=== PATIENT | male | born 1945 | race Two or more races ===

== ENCOUNTER 2019-10-13 16:28 | Inpatient (IN) | payer MEDICARE, OTHER ==
[~2019-10-13] VITALS: Ht 180.3 cm; Wt 88.9 kg
--- NOTE | 2019-10-13 17:30 | NUR ---
Patient BIB pvt ambulance from [facility] for adm to MHU. Patient was placed on a 5150 for DTS. A/Ox4. Speech is clear, but patient repeatedly breaths rapidly because he states it has something to do with his stomach. No cardiovascular distress noted, all pulses palpable. Denies any n/v/d. Patient in bed at lowest position, sr upx2, call light within reach. All objects within reach moved away and out of room.
[2019-10-13 17:48] LABS: BASOPHILS # (AUTO) 0.1 K/uL (0.0-8.0); BASOPHILS % (AUTO) 0.8 % (0.0-2.0); EOSINOPHILS # (AUTO) 0.1 K/uL (0.0-0.7); EOSINOPHILS % (AUTO) 0.9 % (0.0-7.0); HEMATOCRIT 42.1 % (36.7-47.1); HEMOGLOBIN 14.1 g/dL (12.5-16.3); LYMPHOCYTES # (AUTO) 2.1 K/uL (20.0-40.0); LYMPHOCYTES % (AUTO) 23.6 % (20.5-51.5); MEAN CORPUSCULAR HEMOGLOBIN 28.4 uug (23.8-33.4); MEAN CORPUSCULAR HGB CONC 34 g/dL (32.5-36.3); MEAN CORPUSCULAR VOLUME 84.8 fL (73.0-96.2); MONOCYTES # (AUTO) 0.6 K/uL (2.0-10.0); MONOCYTES % (AUTO) 7.2 % (0.0-11.0); NEUTROPHILS % (AUTO) 67.5 % (38.5-71.5); PLATELET COUNT (AUTO) 293 K/uL (152-348); RED BLOOD CELL COUNT(AUTO) 4.96 MIL/uL (4.06-5.63); WHITE BLOOD COUNT (AUTO) 8.9 K/uL (3.6-10.2)
[2019-10-13] MEDS ORDERED: QUET200T PO (17:50)
[2019-10-13] MEDS ORDERED: QUET25TA PO (17:50)
[2019-10-13] MEDS ORDERED: METO-356 PO (17:50)
[2019-10-13] MEDS ORDERED: ZOLP10TA2 PO (17:50)
[2019-10-13] MEDS ORDERED: CLON0.5T4 PO (17:50)
[2019-10-13] MEDS ORDERED: DULO60CA45 PO (17:50)
[2019-10-13] MEDS ORDERED: SAW160CA3 PO (17:50)
[2019-10-13] MEDS ORDERED: LORAZEPAM 2 MG/1 ML VIAL ONE (18:00)
[2019-10-13] MEDS ORDERED: LORAZEPAM 2 MG/1 ML VIAL IM ONE (18:00)
[2019-10-13 18:03] LABS: CARBON DIOXIDE 28 mmol/L (21-32); CHLORIDE 104 mmol/L (98-107); GLUCOSE 110 mg/dL (74-106); POTASSIUM 4.5 mmol/L (3.5-5.1); UREA NITROGEN, BLOOD 18 mg/dL (7-18)
[2019-10-13 18:07] LABS: *BILIRUBIN,URIN NEGATIVE (NEGATIVE); *BLOOD, URINE NEGATIVE (NEGATIVE); *CLARITY,URINE CLEAR (CLEAR); *COLOR,URINE YELLOW (YELLOW); *KETONES,URINE NEGATIVE (NEGATIVE); *UROBILINOGEN,URINE 0.2 E.U./dl (NORMAL); LEUKOCYTE ESTERASE ,URINE NEGATIVE (NEGATIVE); NITRITE, URINE NEGATIVE (NEGATIVE); PH,URINE 6.5 (5.0-8.0); UGLUCOSE NEGATIVE (NEGATIVE)
[2019-10-13 18:08] LABS: ALANINE AMINOTRANSFERASE 28 U/L (16-63); ALKALINE PHOSPHATASE 81 U/L (50-136); ASPARTATE AMINOTRANSFERASE 21 U/L (15-37); BILIRUBIN,DIRECT 0.1 mg/dL (0.0-0.2); BILIRUBIN,TOTAL 0.4 mg/dL (0.2-1.0); TOTAL PROTEIN, SERUM 7.9 g/dL (6.4-8.2)
[2019-10-13 18:21] LABS: ACETAMINOPHEN < 0.0 ug/mL (10-30)
[2019-10-13 18:29] LABS: *AMPHETAMINE, URINE NEGATIVE (NEGATIVE); *BARBITURATE, URINE NEGATIVE (NEGATIVE); *CANNABINOID, URINE NEGATIVE (NEGATIVE); *COCCAINE, URINE NEGATIVE (NEGATIVE); *OPIATE, URINE NEGATIVE (NEGATIVE); *PHENCYCLIDINE SCREEN,URINE NEGATIVE (NEGATIVE)
--- NOTE | 2019-10-13 18:42 | NUR ---
Report given to ANDREW Loving
--- NOTE | 2019-10-13 19:03 | NUR ---
Patient transported to MHU in stable condition.
[2019-10-13] MEDS ORDERED: BLOOD SUGAR DIAGNOSTIC 1 EACH STRIP VI ONE (19:15)
[2019-10-13] MEDS ORDERED: MAG HYDROX/AL HYDROX/SIMETH 30 ML LIQUID UDC PO PRN (19:15)
[2019-10-13 19:27] LABS: THYROID STIMULATING HORMONE 1.615 mIU/mL (0.358-3.740)
[2019-10-13] MEDS: TEMAZEPAM 7.5 MG CAPSULE PO PRN (21:09)
--- NOTE | 2019-10-13 21:22 | NUR ---
Admission note 73 year old male, Luxembourgish/Emirati speaking admitted from the ER. On a 5150 hold for danger to self. Per hold, patient has been having suicidal ideation with a plan. Patient tried to grabbed a knife, but took the knife and sharp objects away. Also says patient believe he has stomach cancer. Per records from [facility] tests were negative for any findings. Upon face to face assessment, patient is A/Ox3, very pleasant and cooperative. Patient was unaware why he was admitted to MHU, explained what was on the hold and patient confirmed that he had a plan to harm himself, he stated that he was depressed, he had issues with his stomach and he wanted to end his life. At this time, I asked patient if he had any plan to or wanting to harm himself now and he stated no, it was only when he was at [facility]. Upon admission, patients vitals are WNL. No complaints of pain or SOB, patient stated having trouble sleeping, offered PRN sleeping medication and patient accepted. Patient was showered and helped to bed. Ambulates with FWW. Attempted to call son Hao, but no answer, left message. Pt educated regarding unit rules and expectations. Patient rights explained, Advisement and patient rights handbook given, Pt oriented to the unit, the phones, his room, and the bathroom. Q 15 minute safety checks initiated.
[2019-10-14 07:30] VITALS: BP 132/81
[2019-10-14] MEDS: LORAZEPAM 0.5 MG TABLET PO PRN (10:43)
--- NOTE | 2019-10-14 11:35 | NUR ---
SAMARA Family Contact: SW called patient's , Dulce Maria ([phone]) and son Hao ([phone]) but unable to reach either. Left voicemail for return call.
--- NOTE | 2019-10-14 11:35 | NUR ---
SAMARA Initial Discharge Note: Patient resides at home [address] [place] [address] with his , Dulce Maria ([phone]) and son Hao ([phone]). Patient will return home upon discharge. SAMARA will continue to work with patient, family, and MD to ensure a safe and proper discharge plan.
--- NOTE | 2019-10-14 11:40 | NUR ---
Social Work Firearms Report ([employer]): Mud Engineer completed and submitted a [employer] firearms report for 5150 danger to self certification. A copy of report has been placed in patient chart.
[2019-10-14] MEDS: DULOXETINE 30 MG CAPSULE.DR PO SCH (12:45)
[2019-10-14] MEDS: QUETIAPINE FUMARATE 25 MG TABLET PO SCH (12:45)
[2019-10-14 14:03] LABS: BILIRUBIN,TOTAL 0.4 mg/dL (0.2-1.0); CREATININE 1.2 mg/dL (0.6-1.3); POTASSIUM 4.7 mmol/L (3.5-5.1); TOTAL PROTEIN, SERUM 7.9 g/dL (6.4-8.2)
--- NOTE | 2019-10-14 14:36 | NUR ---
received patient is A/O x3 parania and delusional ,c/o of abdominal pain denies any psy, problem, compliant with all po medication,refused for group activity ,will continue close monitoring.
[2019-10-14 16:00] VITALS: BP 134/71
[2019-10-14 20:30] VITALS: BP 139/75
[2019-10-14] MEDS ORDERED: QUETIAPINE FUMARATE 100 MG TABLET PO SCH (21:00)
[2019-10-14] MEDS: TEMAZEPAM 7.5 MG CAPSULE PO PRN (21:36)
--- NOTE | 2019-10-14 22:19 | NUR ---
Patient received in bed awake,calm and cooperative. A/Ox3. Denies any SI at this time. Patient is easily agiated and irritable. Patient complaint with medication. No aggressive or combative behavior noted will continue to montior. Safe environment provided, frequent rounding, and clutter free environment. Bed in lowest position, bed locked, and bed alarm on while in bed.
[2019-10-15 07:53] VITALS: BP 139/76
[2019-10-15] MEDS ORDERED: SAW PALMETTO 160 MG PO SCH (09:00)
[2019-10-15] MEDS: METOPROLOL SUCCINATE XL 25 MG TAB.SR.24H PO SCH (09:04)
[2019-10-15] MEDS: QUETIAPINE FUMARATE 25 MG TABLET PO SCH ×2 (09:04→13:03)
[2019-10-15] MEDS: ACETAMINOPHEN 325 MG TABLET PO PRN (09:12)
[2019-10-15] MEDS: LORAZEPAM 0.5 MG TABLET PO PRN (09:12)
--- NOTE | 2019-10-15 09:27 | NUR ---
SAMARA Family Contact: SW spoke patient's son Hao ([phone]) and discussed treatment plan and collected collateral information. Hao stated that the patient has a long history of somatic complaints and psychiatric hospitalizations and has been in nursing homes for continued treatment. Hao stated that patient become delusional about having cancer and gets agitated and became severe resulting in patient attempting suicide with a chain saw to his head. Hao stated that the patient's baseline is happy and calm. Hao stated that they would want half-way placement for the patient as they believe it is safer for the patient and the family.
[2019-10-15] MEDS: DULOXETINE 30 MG CAPSULE.DR PO SCH ×2 (13:03→17:06)
[2019-10-15 15:34] VITALS: BP 111/69
[2019-10-15] MEDS: risperiDONE 0.25 MG TABLET PO SCH (17:06)
--- NOTE | 2019-10-15 17:28 | NUR ---
Gps/Claim Review Medical Director- Noted had been in and out of his group activity. Stayed i in his room during meals. Claimed felt better with his abdominal discomfort, it comes and goes. Ambulates around with front wheel walker. Making his needs known, medications compliant.
--- NOTE | 2019-10-15 18:20 | NUR ---
Gps/Urban Design Consultant- Patient's son Hao, called from [place] , wants to check on his father as well as progress, in his behavior. Son verbalized concerns , claimed he noted that if he is in the Hospital it seems like he is doing well, but when he goes back home to his Mom is what he is worried about, , behavior changes . Will continue to monitor behavior, encouraged continued verbalizations of his feelings.
[2019-10-15 20:00] VITALS: BP 152/69
--- NOTE | 2019-10-15 20:00 | NUR ---
Patient received into care, laying in bed, resting comfortably. Patient is alert/oriented 2-3 and has no complaints of pain or discomfort at this time. All safety and fall precaution measures are in place. Will continue to monitor and assess.
[2019-10-15] MEDS: TEMAZEPAM 7.5 MG CAPSULE PO PRN (20:59)
[2019-10-15] MEDS ORDERED: risperiDONE 0.25 MG TABLET PO SCH (21:00)
--- NOTE | 2019-10-16 06:17 | NUR ---
Patient slept well throughout night with no complaints of pain or discomfort verbalized or noted/observed by this nurse. Patient was compliant with all aspects of care and all nursing needs were addressed promptly. All safety and fall precaution measures remain in place.
[2019-10-16 07:30] VITALS: BP 146/73
[2019-10-16] MEDS: risperiDONE 0.25 MG TABLET PO SCH ×4 (08:48→20:24)
[2019-10-16] MEDS: METOPROLOL SUCCINATE XL 25 MG TAB.SR.24H PO SCH (08:49)
[2019-10-16] MEDS: DULOXETINE 30 MG CAPSULE.DR PO SCH ×2 (12:38→17:21)
--- NOTE | 2019-10-16 15:01 | NUR ---
SAMARA Individual Therapy Note: SW met with patient today for brief individual therapy to address patient's suicidal ideation. Patient states he is still feeling "depressed" due to his abdominal pain. Patient shares that he is "suffering" and "can't do it anymore". nozzle and sleeve worker increased awareness surrounding positive reinforcement and utilized empathic understanding of patients feelings. nozzle and sleeve worker will continue to monitor patient's suicidal ideation and encouraged pt to join group and interact with peers.
[2019-10-16 15:27] VITALS: BP 115/85
--- NOTE | 2019-10-16 20:00 | NUR ---
RECEIVED PATIENT IN HIS ROOM IN BED. HE IS NOTED A/O X 2. HE IS CALM AND PLEASANT UPON APPROACHED. HIS DENIED SI/HI/VH/AH. HE IS ABLE TO CFS. PATIENT CONTINUE NOTE HYPERVERBAL, WITH PSYCHOSOMATIC DELUSIONAL THINKING, HE STATED, "THERE IS NOTHING WRONG WITH ME IN MY HEAD, I HAVE STOMACH CANCER AND I NEED TO TAKE CARE OF IT". PT HAS POOR INSIGHT INTO HIS ADMISSION TO MHU. PT IS ABLE TO VERBALIZED FEELINGS. HE IS REASSURED FOR HIS SAFETY. SAFETY AND FALL PRECAUTION IN PLACE. V/S STABLE. WILL CONTINUE TO MONITOR.
[2019-10-16 20:11] VITALS: BP 140/70
[2019-10-16] MEDS: TEMAZEPAM 7.5 MG CAPSULE PO PRN (22:20)
[2019-10-17 07:30] VITALS: BP 152/74
[2019-10-17] MEDS: risperiDONE 0.25 MG TABLET PO SCH ×4 (08:49→20:05)
[2019-10-17] MEDS: METOPROLOL SUCCINATE XL 25 MG TAB.SR.24H PO SCH (08:51)
[2019-10-17] MEDS: LORAZEPAM 0.5 MG TABLET PO PRN (09:14)
[2019-10-17] MEDS: DULOXETINE 30 MG CAPSULE.DR PO SCH ×2 (12:31→16:46)
[2019-10-17 16:00] VITALS: BP 111/68
[2019-10-17 20:00] VITALS: BP 134/55
--- NOTE | 2019-10-17 20:00 | NUR ---
Received patient in his room in bed. he is noted awake A/O x 2. he continue preoccupied with psychosomatic issues. He stated, "my kidneys are bad. and because they are connected to my brain i am sick. Mood is low, affect is blunted. continue with psychosomatic complains.Patient denies SI/HI/VH/AH. He is reassured for his safety. safety and fall precaution in place. V/S stable. will continue to monitor.
[2019-10-17] MEDS: TEMAZEPAM 7.5 MG CAPSULE PO PRN (21:40)
[2019-10-18 07:30] VITALS: BP 147/73
[2019-10-18] MEDS: risperiDONE 0.25 MG TABLET PO SCH ×4 (09:02→20:19)
[2019-10-18] MEDS: METOPROLOL SUCCINATE XL 25 MG TAB.SR.24H PO SCH (09:02)
[2019-10-18] MEDS: DULOXETINE 30 MG CAPSULE.DR PO SCH ×2 (12:18→17:38)
[2019-10-18] MEDS: LORAZEPAM 0.5 MG TABLET PO PRN (12:23)
[2019-10-18 15:43] VITALS: BP 106/73
[2019-10-18 20:20] VITALS: BP 147/74
[2019-10-19] MEDS: MAGNESIUM HYDROXIDE 30 ML LIQUID UDC PO PRN (05:46)
[2019-10-19 07:30] VITALS: BP 137/74
[2019-10-19] MEDS: risperiDONE 0.25 MG TABLET PO SCH ×3 (08:13→16:51)
[2019-10-19] MEDS: METOPROLOL SUCCINATE XL 25 MG TAB.SR.24H PO SCH (08:14)
--- NOTE | 2019-10-19 09:36 | NUR ---
SAMARA Coordination of Care: SAMARA faxed pt's referral packet for review and possible placement to [facility] (ph: [phone] and fax: [phone]) attention to Jaimie. Addendum: 10/19/19 at 1512 by AMI WILHELM Received a call back from Erik admissions representative at the facility who stated patient is accepted for placement.
[2019-10-19] MEDS: LORAZEPAM 0.5 MG TABLET PO PRN ×2 (10:50→16:51)
[2019-10-19] MEDS: DULOXETINE 30 MG CAPSULE.DR PO SCH ×2 (12:16→16:51)
[2019-10-19 15:27] VITALS: BP 126/54
[2019-10-19 20:23] VITALS: BP 13/66
[2019-10-19] MEDS ORDERED: risperiDONE 0.25 MG TABLET PO SCH (21:00)
--- NOTE | 2019-10-19 21:34 | NUR ---
GPS: PT A/O X2, DENIED SI, OR INTENT. PT DELUSIONAL AND C/O SOMETHING WRONG WITH HIS STOMACH. OFFER STOOL SOFTENER AND PT SAID NO, THAT IS NOT WHAT IS WRONG WITH ME. THERE IS SOMETHING WRONG ON MY STOMACH NOT MY HEAD! PT WAS REORIENTED TO REALITY AND ENSURE SAFETY. PT AT THIS TIME REQUESTING SLEEPING AID. PRN GIVEN ORDER AND CONTINUE MONITOR.
[2019-10-19] MEDS: TEMAZEPAM 7.5 MG CAPSULE PO PRN (22:18)
[2019-10-20 07:46] VITALS: BP 132/82
[2019-10-20] MEDS: risperiDONE 0.25 MG TABLET PO SCH ×3 (08:04→17:03)
[2019-10-20] MEDS: METOPROLOL SUCCINATE XL 25 MG TAB.SR.24H PO SCH (08:05)
[2019-10-20] MEDS ORDERED: DULOXETINE 30 MG CAPSULE.DR PO SCH (13:00)
--- NOTE | 2019-10-20 13:00 | NUR ---
SAMARA Individual Therapy Note: SW met with patient today for brief individual therapy to address patient's suicidal ideation. Patient denies suicidal ideation and has no plan or intent. SW discussed placement options with the patient. Patient is agreeable with going to a care home upon discharge. Pt states "I have no one to take care of me at home". This policy writer typist acknowledged patient's feelings and provided guidance. SW explained to patient that s long-term facility, [facility] is accepting and he will go there upon discharge.
[2019-10-20 15:09] VITALS: BP 128/62
[2019-10-20] MEDS: LORAZEPAM 0.5 MG TABLET PO PRN (17:30)
--- NOTE | 2019-10-20 18:45 | NUR ---
patient is A/O x2 pacing in the hallway with episode of anxiety ,prn Ativan given as ordered,ambulating with FWW .encouraged to attendance group activity.
[2019-10-20 20:12] VITALS: BP 145/72
[2019-10-20] MEDS: risperiDONE 1 MG TABLET PO SCH (20:30)
[2019-10-20] MEDS: MAGNESIUM HYDROXIDE 30 ML LIQUID UDC PO PRN (20:30)
[2019-10-20] MEDS ORDERED: risperiDONE 0.25 MG TABLET PO SCH (21:00)
[2019-10-20] MEDS: TEMAZEPAM 7.5 MG CAPSULE PO PRN (23:02)
--- NOTE | 2019-10-20 23:59 | NUR ---
GPS:RECEIVED PT IN ROOM, A/O X3, DENIED SI BUT NOTED DEPRESSED. PT STILL NOTED WITH DELUSIONAL AND C/O SOMETHING WRONG WITH HIS STOMACH AND C/O HE HAD A HARD STOOL. RE-OFFER STOOL SOFTENER TODAY AND PT SAID YES. PRN MOM GIVE ORDERED AND WAITING EFFECT, ENCOURAGED PLENTY OF WATER TOLERATED. PT ALSO C/O UNABLE TO SLEEP WELL AND PRN SLEEPING WAS ADMINISTERED WITH A WASTED CAPSULE DUE TO PT WAS MOVING THINGS AND DROPPED IT. PT WAS REORIENTED TO REALITY AND ENSURE SAFETY. PT AT THIS TIME SLEEPING AND WILL CONTINUE MONITOR.
[2019-10-21 07:30] VITALS: BP 125/73
[2019-10-21] MEDS: risperiDONE 0.25 MG TABLET PO SCH (09:47)
[2019-10-21] MEDS: OMEGA-3 FATTY ACIDS/FISH OIL CAPSULE PO SCH (09:47)
[2019-10-21] MEDS: METOPROLOL SUCCINATE XL 25 MG TAB.SR.24H PO SCH (09:50)
[2019-10-21] MEDS ORDERED: risperiDONE 0.25 MG TABLET PO SCH (13:00)
[2019-10-21] MEDS ORDERED: DULOXETINE 30 MG CAPSULE.DR PO SCH (13:00)
[2019-10-21] MEDS: risperiDONE 0.5 MG TABLET PO SCH ×2 (13:33→17:07)
[2019-10-21] MEDS: LORAZEPAM 0.5 MG TABLET PO PRN (15:31)
[2019-10-21 16:00] VITALS: BP 143/72
--- NOTE | 2019-10-21 20:30 | NUR ---
Patient ambulating in hallway with FWW, steady gait. Requesting night time medication. Patient denies any SI/hallucination, but patient continues with paranoia that there is something wrong with his stomach and he has stomach cancer, he says "there is nothing wrong with me mentally, it is my stomach." Reoriented patient that at [facility], they did scans of his abdomen and nothing wrong was found, but he believes they're hiding it. Patient is cooperative with care.
[2019-10-21 20:40] VITALS: BP 157/85
[2019-10-21] MEDS: risperiDONE 1 MG TABLET PO SCH (20:53)
[2019-10-21] MEDS: TEMAZEPAM 7.5 MG CAPSULE PO PRN (23:21)
[2019-10-22 07:56] VITALS: BP 135/59
[2019-10-22] MEDS: OMEGA-3 FATTY ACIDS/FISH OIL CAPSULE PO SCH (08:42)
[2019-10-22] MEDS: risperiDONE 0.5 MG TABLET PO SCH ×3 (08:43→17:19)
[2019-10-22] MEDS: METOPROLOL SUCCINATE XL 25 MG TAB.SR.24H PO SCH (08:45)
[2019-10-22] MEDS: LORAZEPAM 0.5 MG TABLET PO PRN (11:46)
[2019-10-22 13:00] VITALS: BP 104/77
[2019-10-22] MEDS ORDERED: DULOXETINE 30 MG CAPSULE.DR PO SCH (13:00)
[2019-10-22] MEDS: BENZTROPINE MESYLATE 0.5 MG TABLET PO SCH ×2 (13:08→17:19)
[2019-10-22] MEDS: FLUOXETINE HCL 20 MG CAPSULE PO SCH (13:08)
--- NOTE | 2019-10-22 13:17 | NUR ---
SAMARA Individual Therapy Note: SW met with patient today for brief individual therapy to address patient's suicidal ideation. Patient states he is no longer feeling suicidal however patient remain with depressed mood. Patient stated "it is hard to deal with the pain in my stomach". Patient remains delusional about having "stomach cancer" or "lung cancer" or "kidney cancer". Pt is unable to engage in a meaningful conversation and is fixated on "health issues". Patient shared that he does not believe he has "mental issues". SW provided empathetic understanding and reality orientation, however pt remain fixated with his delusions. SW encouraged patient to participate in group therapy and engage with peers.
[2019-10-22] MEDS: risperiDONE 1 MG TABLET PO SCH (20:05)
[2019-10-22 21:15] VITALS: BP 153/93
[2019-10-22] MEDS: TEMAZEPAM 7.5 MG CAPSULE PO PRN (22:17)
[2019-10-23 07:30] VITALS: BP 110/53
[2019-10-23] MEDS: OMEGA-3 FATTY ACIDS/FISH OIL CAPSULE PO SCH (08:11)
[2019-10-23] MEDS: BENZTROPINE MESYLATE 0.5 MG TABLET PO SCH ×3 (08:13→16:25)
[2019-10-23] MEDS: FLUOXETINE HCL 20 MG CAPSULE PO SCH (08:13)
[2019-10-23] MEDS: risperiDONE 0.5 MG TABLET PO SCH ×3 (08:13→16:25)
[2019-10-23] MEDS: METOPROLOL SUCCINATE XL 25 MG TAB.SR.24H PO SCH (08:13)
[2019-10-23 15:07] VITALS: BP 119/69
[2019-10-23] MEDS: risperiDONE 1 MG TABLET PO SCH (20:07)
[2019-10-23 20:28] VITALS: BP 121/61
[2019-10-23] MEDS: TEMAZEPAM 7.5 MG CAPSULE PO PRN (22:59)
[2019-10-24 07:30] VITALS: BP 116/58
[2019-10-24] MEDS: risperiDONE 0.5 MG TABLET PO SCH ×3 (09:12→16:47)
[2019-10-24] MEDS: BENZTROPINE MESYLATE 0.5 MG TABLET PO SCH ×3 (09:12→16:47)
[2019-10-24] MEDS: OMEGA-3 FATTY ACIDS/FISH OIL CAPSULE PO SCH (09:12)
[2019-10-24] MEDS: FLUOXETINE HCL 20 MG CAPSULE PO SCH (09:12)
[2019-10-24] MEDS: METOPROLOL SUCCINATE XL 25 MG TAB.SR.24H PO SCH (09:13)
[2019-10-24 16:00] VITALS: BP 119/68
[2019-10-24 20:00] VITALS: BP 117/66
[2019-10-24] MEDS: risperiDONE 1 MG TABLET PO SCH (20:33)
[2019-10-24] MEDS: TEMAZEPAM 7.5 MG CAPSULE PO PRN (20:37)
--- NOTE | 2019-10-24 23:50 | NUR ---
RECEIVED PATIENT IN ACTIVITY ROOM. MOOD APPEARED DEPRESSED BUT UPON INTERACTION HE DENIED BEING SUICIDAL. 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 ALSO REQUESTED SLEEP AID AT 21:00 AND WAS GIVEN TEMAZEPAM 7.5MG WITH FAIRLY GOOD EFFECT.WILL CONTINUE TO MONITOR HIM.
[2019-10-25] MEDS: LORAZEPAM 0.5 MG TABLET PO PRN (03:49)
--- NOTE | 2019-10-25 06:23 | NUR ---
SLEPT FOR APPROX. 5:30 HOURS. KEPT GETTING UP TO REINFORCE HIS PSYCHOSOMATIC ILLNESS AND TO SAY EVERY MEDICATION WE GAVE DID NOT WORK. UP THIS MORNING AND HAS TAKEN A SHOWER.
[2019-10-25 07:30] VITALS: BP 148/74
[2019-10-25] MEDS: FLUOXETINE HCL 20 MG CAPSULE PO SCH (08:40)
[2019-10-25] MEDS: risperiDONE 0.5 MG TABLET PO SCH ×3 (08:40→16:53)
[2019-10-25] MEDS: METOPROLOL SUCCINATE XL 25 MG TAB.SR.24H PO SCH (08:41)
[2019-10-25] MEDS: OMEGA-3 FATTY ACIDS/FISH OIL CAPSULE PO SCH (08:41)
[2019-10-25] MEDS: BENZTROPINE MESYLATE 0.5 MG TABLET PO SCH ×3 (08:41→16:52)
[2019-10-25 15:18] VITALS: BP 134/80
[2019-10-25] MEDS: risperiDONE 1 MG TABLET PO SCH (20:37)
[2019-10-25 21:04] VITALS: BP 143/55
[2019-10-25] MEDS: TEMAZEPAM 7.5 MG CAPSULE PO PRN (22:04)
--- NOTE | 2019-10-26 01:21 | NUR ---
RECEIVED PATIENT IN HIS ROOM. MOOD APPEARED DEPRESSED. STILL SAYS HE HAS SEVERAL PSYCHOSOMATIC ILLNESSES. COMPLIANT WITH MEDS. SLEEP AID REQUESTED AT 22:00 AND HE SLEPT FAIRLY WELL.WILL CONTINUE TO MONITOR.
--- NOTE | 2019-10-26 06:42 | NUR ---
SLEPT FOR APPROX. 7:45HOURS.
[2019-10-26 08:00] VITALS: BP 100/41
[2019-10-26] MEDS: FLUOXETINE HCL 20 MG CAPSULE PO SCH (09:48)
[2019-10-26] MEDS: OMEGA-3 FATTY ACIDS/FISH OIL CAPSULE PO SCH (09:48)
[2019-10-26] MEDS: BENZTROPINE MESYLATE 0.5 MG TABLET PO SCH ×3 (09:48→17:53)
[2019-10-26] MEDS: risperiDONE 0.5 MG TABLET PO SCH ×3 (09:48→17:53)
[2019-10-26] MEDS: METOPROLOL SUCCINATE XL 25 MG TAB.SR.24H PO SCH (09:49)
[2019-10-26] MEDS: MAGNESIUM HYDROXIDE 30 ML LIQUID UDC PO PRN (09:50)
[2019-10-26] MEDS: CLONAZEPAM 0.5 MG TABLET PO SCH ×2 (13:07→17:53)
[2019-10-26 16:29] VITALS: BP 127/64
[2019-10-26] MEDS: risperiDONE 2 MG TABLET PO SCH (20:16)
[2019-10-26 20:40] VITALS: BP 132/69
[2019-10-26] MEDS ORDERED: risperiDONE 1 MG TABLET PO SCH (21:00)
[2019-10-26] MEDS: TEMAZEPAM 7.5 MG CAPSULE PO PRN (22:36)
--- NOTE | 2019-10-27 05:56 | NUR ---
GPS: PATIENT SLEPT FOR APPROX. 5:30 HOURS AFTER SLEEPING MEDS GIVEN. PATIENT FREQUENTLY TO SAY EVERY MEDICATION WE GAVE DID NOT WORK. SHOWERED THIS MORNING. COMPLIANT WITH MEDS AND CARE. CONTINUE PLAN OF CARE.
[2019-10-27 07:30] VITALS: BP 136/72
--- NOTE | 2019-10-27 08:00 | NUR ---
GPS: received patient AOx1, patient denies Si and HI, in good spirit, patient was redirectable, patient in nodistress at this time, compliant with medication
[2019-10-27] MEDS: risperiDONE 0.5 MG TABLET PO SCH ×3 (09:15→16:26)
[2019-10-27] MEDS: OMEGA-3 FATTY ACIDS/FISH OIL CAPSULE PO SCH (09:15)
[2019-10-27] MEDS: CLONAZEPAM 0.5 MG TABLET PO SCH ×2 (09:15→16:25)
[2019-10-27] MEDS: FLUOXETINE HCL 20 MG CAPSULE PO SCH (09:15)
[2019-10-27] MEDS: BENZTROPINE MESYLATE 0.5 MG TABLET PO SCH ×3 (09:15→16:25)
[2019-10-27] MEDS: METOPROLOL SUCCINATE XL 25 MG TAB.SR.24H PO SCH (09:16)
[2019-10-27 15:48] VITALS: BP 118/69
--- NOTE | 2019-10-27 18:16 | NUR ---
patient remain calm, seen interacting with other patient, no distress
--- NOTE | 2019-10-27 19:00 | NUR ---
PATIENT ALERT BUT WITH CONFUSION, NO COMPLAIN OF PAIN AT THIS TIME. PATIENT STAYED MOST IN ROOM, BUT WITH EPISODE OF AMBULATING WITHOUT HIS WALKER, AND TALKING ABOUT WANTING TO GO OUT THE DOOR, AND ABOUT HIS MOTHER, ASKED PATIENT TO SPEAK IN OMANI INSTEAD OF BULGARIAN, BUT NOT EFFECTIVE. DIRECT PATIENT TO HIS ROOM. CONT TO MONITOR.
[2019-10-27] MEDS: MEMANTINE HCL 5 MG TABLET PO SCH (20:14)
[2019-10-27] MEDS: risperiDONE 2 MG TABLET PO SCH (20:14)
[2019-10-27 20:21] VITALS: BP 143/86
[2019-10-27] MEDS: TEMAZEPAM 7.5 MG CAPSULE PO PRN (22:10)
--- NOTE | 2019-10-27 22:10 | NUR ---
PATIENT AMBULATING TO HALLWAYS, PATIENT UNABLE TO SLEEP. PATIENT WAS GIVEN SLEEPING MEDICATIONS TO HELP FALL ASLEEP, AND CONTINUE TO REDIRECT PATIENT TO HIS ROOM CONT TO MONITOR.
--- NOTE | 2019-10-28 05:57 | NUR ---
PATIENT SLEPT MOST OF THE NIGHT, NO COMPLAIN OF PAIN. PATIENT REMAINS CALM ALL NIGHT, CONT TO MONITOR.
[2019-10-28 07:30] VITALS: BP 114/60
[2019-10-28] MEDS: CLONAZEPAM 0.5 MG TABLET PO SCH (08:10)
[2019-10-28] MEDS: FLUOXETINE HCL 20 MG CAPSULE PO SCH (08:10)
[2019-10-28] MEDS: risperiDONE 0.5 MG TABLET PO SCH ×3 (08:10→12:44)
[2019-10-28] MEDS: MEMANTINE HCL 5 MG TABLET PO SCH ×2 (08:10→20:40)
[2019-10-28] MEDS: OMEGA-3 FATTY ACIDS/FISH OIL CAPSULE PO SCH (08:11)
[2019-10-28] MEDS: BENZTROPINE MESYLATE 0.5 MG TABLET PO SCH ×3 (08:11→12:43)
[2019-10-28] MEDS: METOPROLOL SUCCINATE XL 25 MG TAB.SR.24H PO SCH (08:19)
[2019-10-28] MEDS: LORAZEPAM 0.5 MG TABLET PO PRN (09:54)
[2019-10-28 11:53] LABS: BASOPHILS % (AUTO) 0.4 % (0.0-2.0); EOSINOPHILS # (AUTO) 0.1 K/uL (0.0-0.7); EOSINOPHILS % (AUTO) 1.2 % (0.0-7.0); HEMATOCRIT 42.4 % (36.7-47.1); HEMOGLOBIN 14.2 g/dL (12.5-16.3); LYMPHOCYTES % (AUTO) 27.8 % (20.5-51.5); MEAN CORPUSCULAR HEMOGLOBIN 28.6 uug (23.8-33.4); MEAN CORPUSCULAR HGB CONC 34 g/dL (32.5-36.3); MEAN CORPUSCULAR VOLUME 85.2 fL (73.0-96.2); MONOCYTES # (AUTO) 0.7 K/uL (2.0-10.0); MONOCYTES % (AUTO) 9.4 % (0.0-11.0); NEUTROPHILS # (AUTO) 4.4 K/uL (1.8-8.9); NEUTROPHILS % (AUTO) 61.2 % (38.5-71.5); PLATELET COUNT (AUTO) 285 K/uL (152-348); RED BLOOD CELL COUNT(AUTO) 4.97 MIL/uL (4.06-5.63); WHITE BLOOD COUNT (AUTO) 7.2 K/uL (3.6-10.2)
[2019-10-28 12:07] LABS: BILIRUBIN,TOTAL 0.6 mg/dL (0.2-1.0); POTASSIUM 4.2 mmol/L (3.5-5.1); TOTAL PROTEIN, SERUM 7.5 g/dL (6.4-8.2)
[2019-10-28 16:00] VITALS: BP 113/56
[2019-10-28 20:14] VITALS: BP 109/55
[2019-10-28] MEDS: risperiDONE 2 MG TABLET PO SCH (20:40)
[2019-10-28] MEDS: TEMAZEPAM 7.5 MG CAPSULE PO PRN (22:10)
--- NOTE | 2019-10-29 04:50 | NUR ---
PATIENT ASLEEP BUT AROUSABLE, PATIENT TOOK SLEEPING PILL DUE TO COMPLAIN OF INSOMNIA, WITH NO ADVERSE REACTION NOTED, PATIENT CALM MOST OF THE NIGHT, CONT TO MONITOR.
[2019-10-29 07:30] VITALS: BP 155/69
[2019-10-29] MEDS: FLUOXETINE HCL 20 MG CAPSULE PO SCH (09:15)
[2019-10-29] MEDS: risperiDONE 0.5 MG TABLET PO SCH ×3 (09:15→16:41)
[2019-10-29] MEDS: MEMANTINE HCL 5 MG TABLET PO SCH ×2 (09:15→20:47)
[2019-10-29] MEDS: BENZTROPINE MESYLATE 0.5 MG TABLET PO SCH ×3 (09:15→16:41)
[2019-10-29] MEDS: OMEGA-3 FATTY ACIDS/FISH OIL CAPSULE PO SCH (09:15)
[2019-10-29] MEDS: METOPROLOL SUCCINATE XL 25 MG TAB.SR.24H PO SCH (09:16)
--- NOTE | 2019-10-29 10:11 | NUR ---
Family Contact: SW called the pts son, Hao ([phone]), and left a voicemail stating that the pt is going to be discharged tomorrow and that the SW will be available to answer any of his questions regarding the discharge.
[2019-10-29] MEDS: MAGNESIUM HYDROXIDE 30 ML LIQUID UDC PO PRN ×2 (12:47→20:48)
[2019-10-29 16:00] VITALS: BP 126/61
--- NOTE | 2019-10-29 17:45 | NUR ---
Gps/Manager Mental Health- Had been in and out of his activity. Complained of being constipated, MOM 30 ml was given po. with prune juice., no results noted at this time, adequate fluid intake. Had been cooperatives walks around with FWW, at times seen walking w/o any devices. Patient claimed he is going to be discharge tomorrow.
[2019-10-29 20:20] VITALS: BP 126/60
[2019-10-29] MEDS: risperiDONE 2 MG TABLET PO SCH (20:47)
[2019-10-29] MEDS: TEMAZEPAM 7.5 MG CAPSULE PO PRN (22:05)
[2019-10-29] MEDS: ACETAMINOPHEN 325 MG TABLET PO PRN (23:31)
[2019-10-29] MEDS: LORAZEPAM 0.5 MG TABLET PO PRN (23:31)
--- NOTE | 2019-10-30 06:24 | NUR ---
PT SLEPT 7 HOURS and 15 MINUTES. PT IN NO ACUTE DISTRESS. PT GIVEN RESTORIL AT 2205 FOR SLEEP. AT 2331H PT GIVEN TYLENOL FOR PAIN AND ATIVAN PT REQUEST THAT HE WANTS TO SLEEP AND FEELING AGITATED. PT TOLERATED IT WELL. PRESCRIBED MEDICATION GIVEN AND PT TOLERATED IT WELL. SAFETY AND COMFORT PROVIDED. ALL NEEDS ARE MET. WILL ENDORSE TO INCOMING NURSE FOR CONTINUITY OF CARE.
[2019-10-30 07:30] VITALS: BP 114/55
--- NOTE | 2019-10-30 08:30 | NUR ---
Received patient in room sleeping, easy to arouse. Patient in no acute distress. Vital signs stable. safety measures in place and will continue with care.
[2019-10-30] MEDS: METOPROLOL SUCCINATE XL 25 MG TAB.SR.24H PO SCH (09:00)
[2019-10-30] MEDS: risperiDONE 0.5 MG TABLET PO SCH ×3 (09:14→17:35)
[2019-10-30] MEDS: MEMANTINE HCL 5 MG TABLET PO SCH ×2 (09:14→21:00)
[2019-10-30] MEDS: FLUOXETINE HCL 20 MG CAPSULE PO SCH (09:14)
[2019-10-30] MEDS: BENZTROPINE MESYLATE 0.5 MG TABLET PO SCH ×3 (09:14→17:35)
[2019-10-30] MEDS: OMEGA-3 FATTY ACIDS/FISH OIL CAPSULE PO SCH (09:14)
[2019-10-30] MEDS: ACETAMINOPHEN 325 MG TABLET PO PRN (09:31)
--- NOTE | 2019-10-30 10:20 | NUR ---
Patient took all due medications and tolerated well. Also complained of back pain Tylenol 650mg 2 tabs administered. Patient stays in the room for most of the shift. stays to self. Verbalized still "feeling down". patient monitored closely is ambulatory with a walker and with stand by assist for care; BRP. safety measures in place and will continue with care.
--- NOTE | 2019-10-30 12:46 | NUR ---
Family Contact: SAMARA called the pts son, Hao ([phone]), and informed him that the pt is not going to be discharged to [facility] today due to the pt still endorsing suicidal ideation. SAMARA informed him that she will keep him updated regarding the pts discharge.
--- NOTE | 2019-10-30 12:50 | NUR ---
D/C order for today cancelled per Dr. Rodriguez due to patient stating still with SI. will continue to monitor.
--- NOTE | 2019-10-30 12:55 | NUR ---
Patient with an order for Prozac 20mg PO 1 tab daily. First dose administered as ordered and scheduled.
[2019-10-30] MEDS ORDERED: FLUOXETINE HCL 20 MG CAPSULE PO SCH (13:00)
--- NOTE | 2019-10-30 13:30 | NUR ---
SAMARA Group Note: Pt was encouraged to attend group therapy on Saturday10/30/2019 at 1330. The group topic was discharge planning. Pt stated feeling "too depressed," and struggling with active suicidal ideation. Pt refused to attend today's group. SW provided active listening and emotional support. SW will continue to encourage the pt to attend group programming and provide support as needed.
[2019-10-30 15:30] VITALS: BP 126/59
[2019-10-30] MEDS: risperiDONE 2 MG TABLET PO SCH (21:01)
[2019-10-30] MEDS: TEMAZEPAM 7.5 MG CAPSULE PO PRN (21:01)
[2019-10-30 21:04] VITALS: BP 126/56
[2019-10-31 07:30] VITALS: BP 120/60
[2019-10-31] MEDS: OMEGA-3 FATTY ACIDS/FISH OIL CAPSULE PO SCH (08:39)
[2019-10-31] MEDS: MEMANTINE HCL 5 MG TABLET PO SCH ×2 (08:40→20:18)
[2019-10-31] MEDS: ACETAMINOPHEN 325 MG TABLET PO PRN (08:40)
[2019-10-31] MEDS: BENZTROPINE MESYLATE 0.5 MG TABLET PO SCH ×3 (08:40→16:29)
[2019-10-31] MEDS: risperiDONE 0.5 MG TABLET PO SCH ×3 (08:40→16:29)
[2019-10-31] MEDS: METOPROLOL SUCCINATE XL 25 MG TAB.SR.24H PO SCH (08:41)
[2019-10-31] MEDS ORDERED: FLUOXETINE HCL 20 MG CAPSULE PO SCH (09:00)
[2019-10-31] MEDS: GABAPENTIN 100 MG CAPSULE PO SCH ×2 (14:32→16:29)
[2019-10-31 16:00] VITALS: BP 137/75
[2019-10-31 20:00] VITALS: BP 146/74
[2019-10-31] MEDS: CLONAZEPAM 0.5 MG TABLET PO SCH (20:17)
[2019-10-31] MEDS: risperiDONE 2 MG TABLET PO SCH (20:18)
--- NOTE | 2019-11-01 05:30 | NUR ---
GPS:Patient Remain AAO x 3, able to express needs. NO acute distress or SOB noted. compliant with all due medications during the shift. No SI noted. Patient is ambulatory by self and independent for care. Monitored closely. Compliant with care for most of the shift.
--- NOTE | 2019-11-01 06:07 | NUR ---
slept 7:30 hrs through the night.
[2019-11-01 07:12] LABS: BASOPHILS % (AUTO) 0.4 % (0.0-2.0); EOSINOPHILS # (AUTO) 0.2 K/uL (0.0-0.7); EOSINOPHILS % (AUTO) 2.5 % (0.0-7.0); HEMATOCRIT 39.1 % (36.7-47.1); HEMOGLOBIN 13.2 g/dL (12.5-16.3); LYMPHOCYTES # (AUTO) 2.1 K/uL (20.0-40.0); LYMPHOCYTES % (AUTO) 22.1 % (20.5-51.5); MEAN CORPUSCULAR HEMOGLOBIN 28.8 uug (23.8-33.4); MEAN CORPUSCULAR HGB CONC 34 g/dL (32.5-36.3); MEAN CORPUSCULAR VOLUME 85.3 fL (73.0-96.2); MONOCYTES # (AUTO) 0.8 K/uL (2.0-10.0); MONOCYTES % (AUTO) 8.3 % (0.0-11.0); NEUTROPHILS # (AUTO) 6.4 K/uL (1.8-8.9); NEUTROPHILS % (AUTO) 66.7 % (38.5-71.5); PLATELET COUNT (AUTO) 270 K/uL (152-348); RED BLOOD CELL COUNT(AUTO) 4.59 MIL/uL (4.06-5.63); WHITE BLOOD COUNT (AUTO) 9.6 K/uL (3.6-10.2)
[2019-11-01 07:30] VITALS: BP 94/72
[2019-11-01 07:32] LABS: BILIRUBIN,TOTAL 1.5 mg/dL (0.2-1.0); POTASSIUM 3.7 mmol/L (3.5-5.1); TOTAL PROTEIN, SERUM 6.7 g/dL (6.4-8.2)
[2019-11-01] MEDS: BENZTROPINE MESYLATE 0.5 MG TABLET PO SCH ×3 (08:45→18:08)
[2019-11-01] MEDS: risperiDONE 0.5 MG TABLET PO SCH ×3 (08:45→18:08)
[2019-11-01] MEDS: OMEGA-3 FATTY ACIDS/FISH OIL CAPSULE PO SCH (08:45)
[2019-11-01] MEDS: GABAPENTIN 100 MG CAPSULE PO SCH ×3 (08:45→18:08)
[2019-11-01] MEDS: METOPROLOL SUCCINATE XL 25 MG TAB.SR.24H PO SCH (08:54)
[2019-11-01] MEDS: MEMANTINE HCL 5 MG TABLET PO SCH ×2 (11:09→20:15)
[2019-11-01] MEDS: ACETAMINOPHEN 325 MG TABLET PO PRN ×2 (11:09→20:14)
[2019-11-01 16:12] VITALS: BP 106/55
[2019-11-01] MEDS: CLONAZEPAM 0.5 MG TABLET PO SCH (20:14)
[2019-11-01] MEDS: risperiDONE 2 MG TABLET PO SCH (20:14)
[2019-11-01 20:22] VITALS: BP 110/62
[2019-11-01] MEDS ORDERED: GABAPENTIN 100 MG CAPSULE PO SCH (21:00)
--- NOTE | 2019-11-02 06:16 | NUR ---
Slept 6.30 hours last night.
[2019-11-02 07:30] VITALS: BP 99/48
[2019-11-02 08:20] VITALS: BP 99/48
[2019-11-02] MEDS: BENZTROPINE MESYLATE 0.5 MG TABLET PO SCH ×2 (08:20→12:34)
[2019-11-02] MEDS: OMEGA-3 FATTY ACIDS/FISH OIL CAPSULE PO SCH (08:20)
[2019-11-02] MEDS: MAGNESIUM HYDROXIDE 30 ML LIQUID UDC PO PRN (08:20)
[2019-11-02] MEDS: risperiDONE 0.5 MG TABLET PO SCH ×2 (08:20→12:34)
[2019-11-02] MEDS: METOPROLOL SUCCINATE XL 25 MG TAB.SR.24H PO SCH (08:20)
[2019-11-02] MEDS: MEMANTINE HCL 5 MG TABLET PO SCH (08:20)
[2019-11-02] MEDS: GABAPENTIN 100 MG CAPSULE PO SCH ×2 (08:20→12:34)
--- NOTE | 2019-11-02 11:30 | NUR ---
SNF Contact: SAMARA contacted Jaimie ([phone]), plant operations coordinator from [facility], and confirmed that the pt can be discharged today.
--- NOTE | 2019-11-02 12:12 | NUR ---
Family Contact: SW called the pts son, Hao ([phone]), and informed him that the pt is going to be discharged to [facility] today but that the SW does not have a time at this point.
--- NOTE | 2019-11-02 12:27 | NUR ---
Discharge Note: Pt was discharged to [facility] located at [address] [place] [address]; . Pt was transported via [facility]. Pts son, Hao ([phone]), was notified of the discharge and he accepted the placement. Upon discharge, the pt appeared to be in a euthymic mood and presented with a calm affect. Pt appeared to be alert and oriented x3. Pt denied both suicidal and homicidal ideation as well as auditory and visual hallucinations. Pt appeared to be well groomed and appropriately dressed. Pt will continue to be under the care of psychiatrist, Dr. Rodriguez, located at [address], [place] [address]; and patient support assistant, Dr. Ríos, located at [address] [address]; . Pt was unable to sign the Choice of Vendor form but verbally agreed to the placement.
--- NOTE | 2019-11-02 15:30 | NUR ---
GPS: Nursing Notes: Discharge Notes: Patient is awake and responding to his name, cooperative with nursing care, compliant with his medications, following staff directions, denies any SI/HI, denies any any AH/VH, denies any SOB, discharge to [facility] at [address], [place], [place] [id number] , report given to Karina MORALES accounting clerks supervisor, took all his belongings with him, transported to facility via ambulance. Patient will continue to be under the care of psychiatrist, Dr. Rodriguez, located at [address], [place] [address]; and reinforcing rod layer, Dr. Ríos, located at [address] [address]; . key worker informed his son Hao of his discharge to [facility].
== END 2019-11-02 15:30 | DRG 885 ==
LOC: ER 16:31 → GPS 18:47
PROVIDERS: ADMIT Psychiatry & Neurology Psychosomatic Medicine; ATTEND Nurse Practitioner Acute Care
DX: F33.3 Major depressive disorder, recurrent, severe with psychotic symptoms (principal); F23 Brief psychotic disorder; D68.69 Other thrombophilia; E44.1 Mild protein-calorie malnutrition; Z74.09 Other reduced mobility; E11.9 Type 2 diabetes mellitus without complications; I10 Essential (primary) hypertension; F41.9 Anxiety disorder, unspecified; E66.9 Obesity, unspecified; Z68.27 Body mass index [BMI] 27.0-27.9, adult; E88.09 Other disorders of plasma-protein metabolism, not elsewhere classified
CPT/HCPCS: 36415; 70030-TC; 71045; 80307; 80329; 84443; 85025; 85730; 93005; A4663; G0480; G0480-TC; J2060; U0003-CS